=== PATIENT | female | born 1960 | race Caucasian/White ===

== ENCOUNTER → 2022-08-09 14:29 | Outpatient (BNVA) | payer MEDICARE, SELFPAY | PROVIDERS: PCP Student in an Organized Health Care Education/Training Program; Referring Provider Student in an Organized Health Care Education/Training Program; Visit Provider Surgery | DX: K46.9 Unspecified abdominal hernia without obstruction or gangrene (principal); R10.31 Right lower quadrant pain; L91.8 Other hypertrophic disorders of the skin; K57.90 Diverticulosis of intestine, part unspecified, without perforation or abscess without bleeding; Q79.60 Ehlers-Danlos syndrome, unspecified | CPT/HCPCS: 99213; 99242 ==

== ENCOUNTER → 2022-09-03 12:58 | Outpatient (BNVA) | payer MEDICARE, SELFPAY | PROVIDERS: PCP Student in an Organized Health Care Education/Training Program; Referring Provider Student in an Organized Health Care Education/Training Program; Visit Provider Surgery | DX: L91.8 Other hypertrophic disorders of the skin (principal); D17.23 Benign lipomatous neoplasm of skin and subcutaneous tissue of right leg | CPT/HCPCS: 11200; 11402; 99212 ==

== ENCOUNTER 2022-09-03 13:37 | Outpatient (REF) | payer MEDICARE, SELFPAY ==
--- NOTE | 2022-09-03 13:25 | SKI_PTH ---
PATIENT: Vanesa Mc LOC: [facility] U#:[id number] AGE/SX: 62/F ROOM: RE09/03/[address]: Mariella Bowen : 1960 BED: DIS: 09/03/2022 SPEC #: [id number] RECD: 09/03/22 13:54 STATUS: VIOLET REQ #: [id number] DRAKE: 09/03/22 13:[address]: Mariella Bowen DEPT: Surgical Specimen RECD BY: Vanesa Oglesby ENTERED: 09/03/22 13:55 SP TYPE: HARLEY CRESPO DR: Sofia Suresh DO Tissues: 1 - SKIN BIOPSY(SHAVE/PUNCH) Procedures: SKIN LEVEL 4 Comments: [id number]
== END 2022-09-03 13:38 | disposition home or self-care (01) ==
LOC: LBN 13:37
PROVIDERS: PCP Student in an Organized Health Care Education/Training Program; Visit Provider Surgery
DX: D17.23 Benign lipomatous neoplasm of skin and subcutaneous tissue of right leg (principal); L91.8 Other hypertrophic disorders of the skin
CPT/HCPCS: 88305

== ENCOUNTER 2023-11-05 15:46 | Outpatient (REF) | payer MEDICARE, SELFPAY | END 2023-11-05 15:47 | disposition home or self-care (01) | LOC: LBN 15:46 | PROVIDERS: PCP Student in an Organized Health Care Education/Training Program; Visit Provider Student in an Organized Health Care Education/Training Program | DX: R30.0 Dysuria (principal); B96.20 Unspecified Escherichia coli [E. coli] as the cause of diseases classified elsewhere | CPT/HCPCS: 87077; 87086; 87186 ==

== ENCOUNTER 2025-03-02 17:02 | Outpatient (REF) | payer MEDICARE, SELFPAY | END 2025-03-02 17:03 | disposition home or self-care (01) | LOC: LBN 17:02 | PROVIDERS: PCP Student in an Organized Health Care Education/Training Program; Visit Provider Nurse Practitioner Family | DX: Z12.4 Encounter for screening for malignant neoplasm of cervix (principal); Z11.51 Encounter for screening for human papillomavirus (HPV) | CPT/HCPCS: 88142; 87624 ==